=== PATIENT | female | born 1975 | race Two or more races ===

== ENCOUNTER 2020-08-21 08:47 | Outpatient (CLI) | payer OTHER | END 2020-08-21 08:51 | disposition home or self-care (01) | LOC: SONOGRAMA 08:47 | PROVIDERS: ATTEND Pathology Anatomic Pathology & Clinical Pathology | DX: E04.2 Nontoxic multinodular goiter (principal) ==

== ENCOUNTER 2021-10-08 06:27 | Day surgery (SDC) | payer OTHER | END 2021-10-08 12:00 | disposition home or self-care (01) | LOC: AMB-ENDOS 06:27 | PROVIDERS: ATTEND Surgery | DX: K29.50 Unspecified chronic gastritis without bleeding (principal); I10 Essential (primary) hypertension; E03.9 Hypothyroidism, unspecified; E66.01 Morbid (severe) obesity due to excess calories ==

== ENCOUNTER 2022-06-30 06:52 | Day surgery (SDC) | payer OTHER ==
[~2022-06-30] VITALS: Ht 158.8 cm; Wt 143.3 kg
[~2022-06-30 06:52] MED LIST: BISOPROLOL FUMA10 MG PO; BYDUREON B2 MG/0.85; DIOVAN320 MG PO; JANUMET XR 50-1 EAC1 PO; TRELEGY; VENTOLIN HFA18 GM IH; ZOCOR20 MG PO
== END 2022-06-30 20:15 | disposition home or self-care (01) ==
LOC: CIR.AMB 06:52
PROVIDERS: ATTEND Specialist
DX: N93.9 Abnormal uterine and vaginal bleeding, unspecified (principal); N84.0 Polyp of corpus uteri; I10 Essential (primary) hypertension; Z86.16 Personal history of COVID-19